=== PATIENT | female | born 1955 | race Caucasian/White ===

== ENCOUNTER 2023-02-08 16:55 | Inpatient (IN) | payer OTHER, MEDICAID ==
[~2023-02-08] VITALS: Ht 149.9 cm; Wt 72.6 kg
[~2023-02-08 16:55] MED LIST: AMAN100C19 PO; BACL20TA PO; COPAXI20 SQ; ESCI20TA PO; ESOM40CA PO; HYDR-3919 PO; LACT10SO66 PO; LEVO75TA7 PO; LISI20TA30 PO; LORA1TAB PO; OXCA150T5 PO; OXYB5TAB16 PO; OXYB5TAB17 PO; ROPI1TAB2 PO; SIMV-345 PO; TRAM50TA92 PO; ZAN4 PO
[2023-02-08 16:58] VITALS: BP_SYST 129; BP_SYST 177
--- NOTE | 2023-02-08 17:00 | NUR ---
PATIENT BIB BLS AMBULANCE FROM [facility]. CC OF BILATERAL LEG SPASMS & BILATERAL HIP PAIN 04/19. PATIENT IS EXTREMELY RESTLESS & DIAPHORETIC. DIFFICULT TO OBNTAIN VITALS & EKG D/T PATIENT MOVEMENT. FACILITY PROVIDED LIST OF MEDICATIONS AND HISTORY, WAS GIVEN TO TRIAGE NURSE BY S CREW. SEE INTAKE TRIAGE NOTES.
[2023-02-08] MEDS ORDERED: NACL 0.9% 1,000 ML IV ONE (17:15)
[2023-02-08] MEDS ORDERED: LORazepam 2 MG/ML VIAL IVP ONE ×2 (17:15→19:45)
[2023-02-08] MEDS ORDERED: KETOROLAC TROMETHAMINE 30 MG VIAL IVP ONE (17:15)
[2023-02-08] MEDS ORDERED: HYDROcodone/ACETAMIN 5-325 MG TAB (NORCO/ VICODIN) PO ONE (17:45)
--- NOTE | 2023-02-08 17:45 | NUR ---
PATIENT NOTED ATTEMPTING TO EXIT THE BED BY THE FOOT OF THE BED. WAS ASSISTED BACK TO PROPER POSITION UISING 2 STAFF MEMBERS. PATIENT IMMEDIATELY ATTEMPTED TO SCOOT BACK TOWARD THE FOOT OF THE BED. WHEN TOLD NOT TO TRY TO GET OUT OF BED, PATIENT STATED THAT SHE WAS NOT TRYING TO GET UP, THAT SHE WAS HAVING MUSCLE SPASMS. PATIENT WAS CLEARLY MAKING MOVES TO EXIT THE BED. MD NOTIFIED.
[2023-02-08 17:49] LABS: BASOPHILS # (AUTO) 0.1 K/uL (0.0-0.2); EOSINOPHILS % (AUTO) 0.1 % (0.0-4.0); MEAN CORPUSCULAR VOLUME 67 fL (79.0-98.0); MONOCYTES # (AUTO) 0.9 K/uL (0.0-1.0)
--- NOTE | 2023-02-08 17:50 | NUR ---
MD AT BEDSIDE REASSESSING PATIENT
[2023-02-08 17:56] LABS: BASOPHILS % (AUTO) 0.8 % (0.0-2.0); LYMPHOCYTES # (AUTO) 1.1 K/uL (1.0-5.5); LYMPHOCYTES % (AUTO) 10.2 % (20.5-51.5); MEAN CORPUSCULAR HEMOGLOBIN 22 pg (27-31); MEAN CORPUSCULAR HGB CONC 32 % (32-36); NEUTROPHILS # (AUTO) 8.7 K/uL (1.8-7.7); NEUTROPHILS % (AUTO) 80.9 % (40.0-70.0); PLATELET COUNT (AUTO) 498 K/uL (130-430); RED BLOOD CELL COUNT(AUTO) 3.25 MIL/uL (4.2-6.2); RED CELL DISTRIBUTION WIDTH 18.2 % (9.0-15.0); WHITE BLOOD COUNT (AUTO) 10.8 K/uL (4.8-10.8)
[2023-02-08] MEDS ORDERED: HALOPERIDOL LACTATE 5 MG/ML VIAL IM ONE (18:00)
[2023-02-08 18:01] LABS: HEMATOCRIT 21.8 % (36-48)
[2023-02-08 18:09] LABS: ALANINE AMINOTRANSFERASE 34 U/L (12-78); ALBUMIN 3.7 g/dL (3.4-4.8); ANION GAP 8 (5-15); ASPARTATE AMINOTRANSFERASE 59 U/L (10-37); CALCIUM 8.5 mg/dL (8.4-11.0); CREATININE 0.62 mg/dL (0.55-1.30); GFR AFRICAN AMERICAN 123 mL/min (>90); GLUCOSE 122 mg/dL (70-99); TOTAL BILIRUBIN 0.4 mg/dL (0.0-1.0); UREA NITROGEN, BLOOD 13 mg/dL (8-21)
[2023-02-08 18:17] LABS: CHLORIDE 84 mmol/L (98-107)
--- NOTE | 2023-02-08 18:29 | NUR ---
CRITICAL LAB OF SODIUM; REPORT GIVEN TO DOMINICK CURTIS
[2023-02-08] MEDS ORDERED: SODIUM CHLORIDE 3% *HI-ALERT* 500 ML IV ONE (18:30)
--- NOTE | 2023-02-08 18:35 | NUR ---
FOLLOWING RECEIPT OF CRITICAL SODIUM LEVEL, PATIENT IS NOW HIGHER AQUITIY LEVEL AND TRANSFER OF CARE & GAVE REPORT TO DOMINICK HOPPER.
--- NOTE | 2023-02-08 19:07 | NUR ---
PER DR GONZALEZ AND TONY HOLLINGSWORTH IN NRSG STATION. PT TO BE GIVEN HYPERTONIC 3% SODIUM 100MLS IN 10 MINUTES VIA IV PUMP.
--- NOTE | 2023-02-08 19:18 | NUR ---
REPORT GIVEN TO DOMINICK NORTON.
--- NOTE | 2023-02-08 19:23 | NUR ---
Admit bed requested Patient will be admitted to care of Dr.SINGH Friedman Admitted to TELEMETRY unit. Diagnosis SEVERE HYPONATREMIA Inpatient (Yes or No) YES Observation (Yes or No) NO Orientation concerns or request close to nursing station (Yes or No) YES Covid Status On vent or bipap NO Isolation requirements NO Needs a sitter NO From Home (Yes or if No enter name of facility) [facility] Requires Dialysis (Yes or No) NO Med Rec Completed (Yes of No) PENDING
[2023-02-08] MEDS ORDERED: LABETALOL 100 MG/ 20ML VIAL IVP ONE (19:30)
--- NOTE | 2023-02-08 19:30 | NUR ---
ER MD MADE AWARE OF 143 HEART RATE, PT SWEATING PREFUSOLEY, STATED HE WILL ASSESS PT AND VERBALLY ORDERED 2ND EKG. 193 I PERFORMED EKG GAVE TO FOR INTERPERTATION, AT BEDSIDE.
--- NOTE | 2023-02-08 20:50 | NUR ---
RECEIVED PATIENT FROM ED VIA GURNEY. PATIENT A/O X 1 AND UNABLE TO ANSWER QUESTIONS. PATIENT IS DIAPHORETIC WITH STABLE VITAL SIGNS. HL INTACT AND PATENT. RECEIVED A CALL FROM DR. TAYLOR REGARDING PATIENT SODIUM LEVEL. ORDERS FOR CHEM 7 NOW AND TO CALL DOCTOR BACK WITH NA LEVEL GIVEN. ORIENTED TO ROOM AND CALL LIGHT SYSTEM. WILL CONTINUE TO MONITOR FOR SAFETY. Jonna PERDOMO RN.
--- NOTE | 2023-02-08 20:51 | NUR ---
CONSULTATION PAGED Reason for Consultation: RENAL Person Who was Notified: MARV Consulting Physician: Mc TAYLOR Consulting phone number: [phone] Pile Fabric Knitter Specialty: NEPHRO Ordering Physician: KIP
--- NOTE | 2023-02-08 21:00 | NUR ---
Patient will be admitted to care of DR SHIN. Admitted to TELE unit. Will go to room 105B. Belongings list completed. Complete and up to date summary report printed. SBAR report to TORRIE TAN be given at bedside with opportunity for questions.
[2023-02-08 21:40] VITALS: BP_SYST 163
--- NOTE | 2023-02-08 21:44 | NUR ---
1 UNIT OF PRBC STARTED ORDERED. Jonna PERDOMO RN.
[2023-02-08] MEDS ORDERED: NACL 0.9% 1,000 ML IV SCH (21:45)
[2023-02-08] MEDS ORDERED: LORazepam 1 MG TABLET PO PRN (21:45)
[2023-02-08] MEDS ORDERED: cloNIDine HCL 0.2 MG TABLET PO PRN (21:45)
[2023-02-08] MEDS ORDERED: NALOXONE HCL 0.4 MG/ML AMP (NARCAN) IVP PRN ×3 (21:45→22:00)
[2023-02-08] MEDS ORDERED: HYDROcodone/ACETAMIN 5-325 MG TAB (NORCO/ VICODIN) PO PRN (21:45)
[2023-02-08] MEDS ORDERED: traMADol HCL HCL 50 MG TABLET (ULTRAM) PO PRN (21:45)
[2023-02-08 21:55] VITALS: BP_SYST 163
--- NOTE | 2023-02-08 21:55 | NUR ---
PATIENT DAUGHTER GINA CALLED AND WAS ABLE TO OBTAIN ADMISSION INFORMATION FROM DAUGHTERPraveen PERDOMO RN.
[2023-02-08] MEDS ORDERED: ONDANSETRON HCL 4 MG/2 ML VIAL IVP PRN (22:00)
[2023-02-08] MEDS ORDERED: ZOLPIDEM TARTRATE 5 MG TABLET PO PRN (22:00)
[2023-02-08] MEDS ORDERED: ACETAMINOPHEN 325 MG TABLET PO PRN (22:00)
[2023-02-08] MEDS ORDERED: MAGNESIUM SULFATE 50 ML IV PRN (22:00)
[2023-02-08] MEDS ORDERED: MUPIROCIN 2% TOPICAL OINTMENT 22 GM NS PRN (22:00)
[2023-02-08] MEDS ORDERED: POTASSIUM CHLORIDE 20 MEQ TAB.PRT.SR PO PRN (22:00)
[2023-02-08] MEDS ORDERED: DOCUSATE SODIUM 100 MG CAPSULE PO PRN (22:00)
--- NOTE | 2023-02-08 22:00 | NUR ---
PATIENT TOLERATING BLOOD TRANSFUSION WELL WITH NO SIGNS OR SYMPTOMS OF A ADVERSE REACTION NOTED. Jonna PERDOMO RN.
[2023-02-08 22:01] VITALS: BP_SYST 176
[2023-02-08 22:27] LABS: CALCIUM 8.3 mg/dL (8.4-11.0); CREATININE 0.72 mg/dL (0.55-1.30)
--- NOTE | 2023-02-08 22:47 | NUR ---
DR TAYLOR PAGED
--- NOTE | 2023-02-08 22:51 | NUR ---
DR. TAYLOR CALLED AND NOTIFIED PATIENT'S NA LEVEL NOW 122. ORDERS GIVEN FOR IVF's. Jonna PERDOMO RN.
[2023-02-09 00:04] VITALS: BP_SYST 164
--- NOTE | 2023-02-09 00:04 | NUR ---
1 UNIT OF PRBC COMPLETE WITH NO ADVERSE REACTIONS NOTED. PATIENT TOLERATED BLOOD TRANSFUSION WELL. Jonna PERDOMO RN.
[2023-02-09 00:08] LABS: BILIRUBIN,URINE NEGATIVE (NEGATIVE); COLOR,URINE YELLOW (YELLOW); GLUCOSE,URINE NEGATIVE (NEGATIVE); KETONES,URINE TRACE (NEGATIVE); LEUKOCYTE ESTERASE ,URINE NEGATIVE (NEGATIVE); NITRITE, URINE NEGATIVE (NEGATIVE); PROTEIN URINE 2+ (NEGATIVE); UROBILINOGEN,URINE 0.2 (0.2-1.0)
[2023-02-09 00:19] LABS: BLOOD, URINE TRACE (NEGATIVE)
[2023-02-09 00:20] LABS: CLARITY/URINE HAZY (CLEAR)
[2023-02-09] MEDS: NACL 0.9% 1,000 ML IV SCH ×2 (00:20→12:36)
[2023-02-09] MEDS: LORazepam 2 MG/ML VIAL IVP PRN (00:20)
[2023-02-09 00:44] LABS: BACTERIA,URINE None Seen /HPF (None Seen); WBC,URINE 0-3 /HPF (0-3)
[2023-02-09 05:26] LABS: BASOPHILS # (AUTO) 0.1 K/uL (0.0-0.2); BASOPHILS % (AUTO) 0.4 % (0.0-2.0); HEMATOCRIT 24.7 % (36-48); HEMOGLOBIN 8.2 g/dL (12.0-16.0); LYMPHOCYTES # (AUTO) 0.8 K/uL (1.0-5.5); MEAN CORPUSCULAR HEMOGLOBIN 23 pg (27-31); MEAN CORPUSCULAR HGB CONC 33 % (32-36); MEAN CORPUSCULAR VOLUME 70 fL (79.0-98.0); MONOCYTES # (AUTO) 1.5 K/uL (0.0-1.0); MONOCYTES % (AUTO) 9.2 % (1.7-9.3); NEUTROPHILS # (AUTO) 14.4 K/uL (1.8-7.7); NEUTROPHILS % (AUTO) 85.4 % (40.0-70.0); PLATELET COUNT (AUTO) 469 K/uL (130-430); RED BLOOD CELL COUNT(AUTO) 3.52 MIL/uL (4.2-6.2); WHITE BLOOD COUNT (AUTO) 16.8 K/uL (4.8-10.8)
[2023-02-09 05:51] LABS: CALCIUM 8.1 mg/dL (8.4-11.0); CREATININE 0.61 mg/dL (0.55-1.30)
[2023-02-09 06:04] LABS: TOTAL IRON BIND. CAPACITY 514 ug/dL (250-450)
--- NOTE | 2023-02-09 06:14 | NUR ---
REMAINS IN STABLE CONDITION. SLEPT WELL THROUGHOUT THE NIGHT. Jonna PERDOMO RN.
--- NOTE | 2023-02-09 07:40 | NUR ---
OPENING NOTES PATIENT IS AOX3. FORGETFUL/ CONFUSED. NO SS OF DISTRESS NOTED. BREATHING IS EVEN AND NONLABORED, ON ROOM AIR. VITAL SIGNS OBTAINED, DOCUMENTED. NO SOB NOTED. PATIENT DENIES PAIN. NO FACIAL GRIMACE NOTED. PATIENT HAS BEEN CLEANED AND REPOSITIONED. AT THIS TIME, PATIENT IS NPO. IV APPEARS TO BE PATENT. NO SS OF INFILTRATION NOTED. IVF RUNNING. PATIENT HAS HASTINGS CATHETER IN PLACE DRAINING YELLOW URINE BY GRAVITY. BED IS LOCKED, ALARM ON, AND AT LOWEST POSITION. CALL LIGHT WITHIN REACH.
[2023-02-09 08:00] VITALS: BP_SYST 136
[2023-02-09] MEDS ORDERED: GLATIRAMER ACETATE 20 MG/ML SQ SCH (09:00)
[2023-02-09] MEDS ORDERED: oxyBUTYnin chloride 5 MG TABLET PO SCH (09:00)
[2023-02-09] MEDS ORDERED: ESCITALOPRAM OXALATE 10 MG TABLET PO SCH (09:00)
[2023-02-09] MEDS: LACTULOSE 20 GM/30 ML UDC PO SCH (09:38)
[2023-02-09] MEDS: BACLOFEN 10 MG TABLET PO SCH ×4 (09:39→21:28)
[2023-02-09] MEDS ORDERED: iohexoL 350 mgI/mL, 100 ML INFUS..BTL IV ONE (09:39)
[2023-02-09] MEDS: tiZANidine HCL 4 MG TABLET PO SCH ×3 (09:39→21:27)
[2023-02-09] MEDS: CITALOPRAM HYDROBROMIDE 20 MG TABLET PO SCH (09:39)
[2023-02-09] MEDS: LEVOTHYROXINE SODIUM 0.075 MG TABLET PO SCH (09:39)
[2023-02-09] MEDS: OXcarbazepine 150 MG TABLET(TRILEPTAL) PO SCH ×2 (09:40→21:27)
[2023-02-09] MEDS: lisinopriL 20 MG TABLET PO SCH (09:40)
--- NOTE | 2023-02-09 09:43 | NUR ---
notes dr. Ba came to see patient at bedside. Per Md, patient can eat and take medications. Morning medications administered. Patient swallowed whole, without difficulty. All safety precautions in place and call light within reach.
--- NOTE | 2023-02-09 10:03 | NUR ---
Spoke to dr. Olivo. to come see patient this afternoon.
--- NOTE | 2023-02-09 10:04 | NUR ---
CONSULTATION PAGED/CALLED Reason for Consultation: [] LEUKOCYTOSIS Person Who was Notified: [] FIFI Consulting Physician: [] DR RICHARD Machine Feeder Raw Stock Specialty: [] ID Ordering Physician: [] DR SHIN
[2023-02-09] MEDS ORDERED: CARVEDILOL 6.25 MG TABLET (COREG) PO ONE (10:30)
[2023-02-09 11:13] LABS: BILIRUBIN,URINE NEGATIVE (NEGATIVE); BLOOD, URINE 2+ (NEGATIVE); CLARITY/URINE CLEAR (CLEAR); COLOR,URINE YELLOW (YELLOW); GLUCOSE,URINE NEGATIVE (NEGATIVE); KETONES,URINE 1+ (NEGATIVE); LEUKOCYTE ESTERASE ,URINE NEGATIVE (NEGATIVE); NITRITE, URINE NEGATIVE (NEGATIVE); PROTEIN URINE 1+ (NEGATIVE); UROBILINOGEN,URINE 0.2 (0.2-1.0)
[2023-02-09 11:26] VITALS: BP_SYST 148
[2023-02-09 11:39] LABS: WBC,URINE 0-3 /HPF (0-3)
[2023-02-09 11:40] LABS: BACTERIA,URINE RARE /HPF (None Seen)
[2023-02-09 11:41] LABS: YEAST,URINE None Seen /HPF (None Seen)
--- NOTE | 2023-02-09 11:56 | NUR ---
Assistant General Manager OPTICAL WORKER received a referral from Dr. Ba to see pt. OPTICAL WORKER first met with Rn. Rojas who stated pt. just arrived, but daughter Kandice stated she will not be available this weekend to pick her mom/pt. up to take her back to [facility] where she resides as she will be out of town. OPTICAL WORKER attempted to meet with pt. but pt. was in a deep sleep. OPTICAL WORKER called and left a message for DPHARRIETT Granddaughter, Meena, and also with Kandice pts. hassan at [phone]. OPTICAL WORKER left a message for both. Addendum: 02/09/23 at 1355 by Marcelina RUTLEDGE Assistant General Manager Daughter, Meena, called stating she is an Rn at the [facility] and is working this weekend. Heri stated her sister, Kandice [phone] is leaving and will be out of town to [facility] this weekend. If pt. is discharged Meena stated she is unsure of the plan. OPTICAL WORKER asked her to work on this matter and stated since pt. just arrived, at this moment, there is no order for discharge planning. Pt. may need to go to a SNF in which case pt would be transported via ambulance. If pt. is medically cleared and needs to return to [facility], they would need to transport pt. unless they call [facility] to see if they have transportation service. Meena stated pt. had stayed the weekend her at her home and pt. was using a walker to get around, which is her normal baseline. Just recently, pt. has had more trouble walking and is experiencing more hip pain. Pt. was going to have her apt. for final clearance for hip surgery, but ended up at the [facility] instead, missed her apt. OPTICAL WORKER asked dtr to work on a transportation plan. OPTICAL WORKER will remain available as needed.
[2023-02-09] MEDS ORDERED: ERAVACYCLINE DI HYDROCHLORIDE IV ONE (12:00)
[2023-02-09] MEDS ORDERED: NS IV ONE (12:00)
--- NOTE | 2023-02-09 12:00 | NUR ---
NOTES PATIENT HAS BEEN REPOSITIONED AND HOB ELEVATED. PATIENT IS EATING LUNCH. NO SS OF DISTRESS NOTED. ALL SAFETY PRECAUTIONS IN PLACE AND CALL LIGHT WITHIN REACH.
[2023-02-09] MEDS: MORPHINE 2 MG/ML INJ. SYRINGE IVP PRN (13:28)
--- NOTE | 2023-02-09 13:30 | NUR ---
NOTES PATIENT STATED BACK PAIN 04/19. REQUEST PAIN MEDICATION. RN MADE AWARE. RN IN ROOM ADMINISTERING IVP PAIN MEDICATION.
[2023-02-09] MEDS: oxyBUTYnin chloride 5 MG TABLET PO SCH ×2 (14:04→21:26)
[2023-02-09 15:02] VITALS: BP_SYST 157
--- NOTE | 2023-02-09 15:45 | NUR ---
PAGED AND SPOKE TO DR. SHIN. MADE AWARE THAT PATIENT CONTINUES TO HAVE MUSCLE SPASMS EVEN AFTER ROUTINE MEDICATION GIVEN. NEW ORDERS RECEIVED,
[2023-02-09] MEDS ORDERED: CYCLOBENZAPRINE HCL 10 MG TABLET (FLEXERIL) PO ONE (16:00)
--- NOTE | 2023-02-09 17:43 | NUR ---
NOTES PATIENT IS RESTING, EYES CLOSED. BREATHING IS EVEN AND NONLABORED, ON ROOM AIR. NO SS OF DISTRESS NOTED. MUSCLE SPASMS APPEAR TO HAVE SUBSIDED. PATIENT DENIES PAIN. ALL SAFTEY PRECAUTION IN PLACE AND CALL LIGHT WITHIN REACH.
--- NOTE | 2023-02-09 18:40 | NUR ---
CLOSING NOTES PATIENT IS RESTING, EYES CLOSED. NO SS OF DISTRESS NOTED. BREATHING IS EVEN AND NONLABORED, ON ROOM AIR. PATIENT'S IV IS PATENT. IVF RUNNING. NO SOB NOTED. NO FACIAL GRIMACE NOTED. PATIENT IS STABLE. ALL NEEDS MET. HASTINGS CATHETER DRAINING YELLOW URINE BY GRAVITY. BED IS LOCKED, ALARM ON, AND AT LOWEST POSITION. CALL LIGHT WITHIN REACH.
--- NOTE | 2023-02-09 19:30 | NUR ---
OPENING NOTES Patient resting in bed - no s/s pain or distress noted. Respirations even and unlabored - head of bed elevated. IV site patent no s/s redness, infection, or infiltration. Bed locked and in lowest position. Call light within reach - bed alarm on.
[2023-02-09 20:00] VITALS: BP_SYST 138
[2023-02-09] MEDS: NS IV SCH (21:25)
[2023-02-09] MEDS: ERAVACYCLINE DI HYDROCHLORIDE IV SCH (21:25)
[2023-02-09] MEDS: SIMVASTATIN 40 MG TABLET PO SCH (21:27)
[2023-02-09] MEDS: CARVEDILOL 6.25 MG TABLET (COREG) PO SCH (21:28)
[2023-02-09] MEDS: CYCLOBENZAPRINE HCL 10 MG TABLET (FLEXERIL) PO SCH (21:36)
[2023-02-10 02:36] VITALS: BP_SYST 129
[2023-02-10 05:03] VITALS: BP_SYST 143
[2023-02-10] MEDS: NACL 0.9% 1,000 ML IV SCH ×2 (06:49→21:12)
[2023-02-10 07:07] LABS: FERRITIN 17 ng/mL (15-150)
[2023-02-10 07:07] LABS: BASOPHILS # (AUTO) 0.1 K/uL (0.0-0.2); BASOPHILS % (AUTO) 0.6 % (0.0-2.0); HEMATOCRIT 22.3 % (36-48); HEMOGLOBIN 7.2 g/dL (12.0-16.0); LYMPHOCYTES % (AUTO) 6.8 % (20.5-51.5); MEAN CORPUSCULAR HEMOGLOBIN 23 pg (27-31); MEAN CORPUSCULAR HGB CONC 32 % (32-36); MEAN CORPUSCULAR VOLUME 71 fL (79.0-98.0); MONOCYTES # (AUTO) 1.5 K/uL (0.0-1.0); MONOCYTES % (AUTO) 9.8 % (1.7-9.3); NEUTROPHILS # (AUTO) 12.7 K/uL (1.8-7.7); PLATELET COUNT (AUTO) 391 K/uL (130-430); RED BLOOD CELL COUNT(AUTO) 3.13 MIL/uL (4.2-6.2); RED CELL DISTRIBUTION WIDTH 19.5 % (9.0-15.0); WHITE BLOOD COUNT (AUTO) 15.3 K/uL (4.8-10.8)
[2023-02-10 07:14] LABS: CALCIUM 7.5 mg/dL (8.4-11.0); CREATININE 0.58 mg/dL (0.55-1.30)
[2023-02-10 07:42] LABS: NEUTROPHILS % (AUTO) 82.8 % (40.0-70.0)
[2023-02-10 08:00] VITALS: BP_SYST 138
--- NOTE | 2023-02-10 08:00 | NUR ---
Initial notes Sleepy, arousable, Denies any pain or discomfort. IVF infusing well. horvath cath draining clear yellow urine. Safety precaution observed. Bed alarm on. Will continue monitor.
[2023-02-10 08:06] LABS: FOLATE (FOLIC ACID) >20.0 ng/mL (>3.0)
[2023-02-10] MEDS: BACLOFEN 10 MG TABLET PO SCH ×4 (08:50→20:21)
[2023-02-10] MEDS: CARVEDILOL 6.25 MG TABLET (COREG) PO SCH ×2 (08:53→20:21)
[2023-02-10] MEDS: LACTULOSE 20 GM/30 ML UDC PO SCH (08:54)
[2023-02-10] MEDS: lisinopriL 20 MG TABLET PO SCH (08:54)
[2023-02-10] MEDS: LEVOTHYROXINE SODIUM 0.075 MG TABLET PO SCH (08:55)
[2023-02-10] MEDS: OXcarbazepine 150 MG TABLET(TRILEPTAL) PO SCH ×2 (08:55→20:20)
[2023-02-10] MEDS: tiZANidine HCL 4 MG TABLET PO SCH ×3 (08:55→20:22)
[2023-02-10] MEDS: CITALOPRAM HYDROBROMIDE 20 MG TABLET PO SCH (08:56)
[2023-02-10] MEDS: oxyBUTYnin chloride 5 MG TABLET PO SCH ×3 (08:56→20:22)
[2023-02-10] MEDS: CYCLOBENZAPRINE HCL 10 MG TABLET (FLEXERIL) PO SCH ×3 (08:56→20:21)
[2023-02-10] MEDS: NS IV SCH ×2 (08:57→20:30)
[2023-02-10] MEDS: ERAVACYCLINE DI HYDROCHLORIDE IV SCH ×2 (08:57→20:30)
[2023-02-10] MEDS ORDERED: POTASSIUM CHLORIDE 40 MEQ in NS 250 ML IV ONE (11:00)
[2023-02-10 11:30] VITALS: BP_SYST 127
--- NOTE | 2023-02-10 12:05 | NUR ---
>>>PT NOTES<<< PATIENT REFUSED PHYSICAL THERAPY TODAY DUE TO C/O TIREDNESS. WILL FOLLOW UP ON 02/12/23.
[2023-02-10 12:07] LABS: BASOPHILS # (AUTO) 0.1 K/uL (0.0-0.2); BASOPHILS % (AUTO) 0.4 % (0.0-2.0); EOSINOPHILS % (AUTO) 0.2 % (0.0-4.0); LYMPHOCYTES # (AUTO) 1.4 K/uL (1.0-5.5); LYMPHOCYTES % (AUTO) 8.5 % (20.5-51.5); MEAN CORPUSCULAR HEMOGLOBIN 23 pg (27-31); MEAN CORPUSCULAR HGB CONC 32 % (32-36); MEAN CORPUSCULAR VOLUME 71 fL (79.0-98.0); MONOCYTES # (AUTO) 1.7 K/uL (0.0-1.0); MONOCYTES % (AUTO) 10.6 % (1.7-9.3); NEUTROPHILS # (AUTO) 13.2 K/uL (1.8-7.7); NEUTROPHILS % (AUTO) 80.3 % (40.0-70.0); PLATELET COUNT (AUTO) 376 K/uL (130-430); RED BLOOD CELL COUNT(AUTO) 2.94 MIL/uL (4.2-6.2); RED CELL DISTRIBUTION WIDTH 19.9 % (9.0-15.0); WHITE BLOOD COUNT (AUTO) 16.4 K/uL (4.8-10.8)
[2023-02-10 12:12] LABS: HEMATOCRIT 20.9 % (36-48); HEMOGLOBIN 6.7 g/dL (12.0-16.0)
--- NOTE | 2023-02-10 13:50 | NUR ---
CONSULTATION PAGED REASON FOR CONSULTATION: POSSIBLE GI BLEED WAS CONSULT CALLED? Y PERSON WHO WAS NOTIFIED: GARRET CONSULTING PHYSICIAN: NANCI OWEN (GAMALIEL LEONARD WELDER TOOL AND DIE) REACH TRUCK OPERATOR SPECIALTY: GI REACH TRUCK OPERATOR PHONE [phone]: REQUESTING PHYSICIAN: BALTAZAR PERKINS
[2023-02-10] MEDS ORDERED: PANTOPRAZOLE SODIUM 40 MG/VIAL (PROTONIX) IVP ONE (14:00)
--- NOTE | 2023-02-10 14:00 | NUR ---
NOTES- K rider still running. We give blood transfusion after k rider is done.
[2023-02-10 15:24] VITALS: BP_SYST 106
--- NOTE | 2023-02-10 16:34 | NUR ---
Notes- Blood transfusion started. educate patient on blood transfusion reaction.
--- NOTE | 2023-02-10 17:30 | NUR ---
Notes- patient's trying to get out of bed. Instructed patient not to get out of bed.
--- NOTE | 2023-02-10 18:40 | NUR ---
closing notes Resting in bed, blood transfusion still ongoing. Will endorse.
--- NOTE | 2023-02-10 19:30 | NUR ---
OPENING NOTE Pt laying in bed with eyes closed. Breathing even and unlabored with no s/s of respiratory distress. Blood transfusion infusing. Pt drowsy but arousable. Fall and safety precautions in place. Bed at lowest position, bed alarm on, and call light within reach.
--- NOTE | 2023-02-10 19:43 | NUR ---
BLOOD TRANSFUSION Blood transfusion complete. Pt tolerated well.
[2023-02-10 20:00] VITALS: BP_SYST 161
[2023-02-10] MEDS: SIMVASTATIN 40 MG TABLET PO SCH (20:20)
[2023-02-11] VITALS (22 sets, daily range): BP systolic 86–207
--- NOTE | 2023-02-11 03:13 | NUR ---
RAPID RESPONSE Pt was yelling "help, help, I can't breathe". RN went into room and found pt lying in bed with increased WOB and using accessory muscles. Elevated head of bed, O2 was 78% on RA. Placed on 5L nasal cannula, saturation went up to 94%. Rapid response was called. BP elevated 207/117. STAT chest xray and ABG were taken. Paged Dr Brenner.
--- NOTE | 2023-02-11 03:28 | NUR ---
SPOKE W/ DR LAKE Notified Dr Lake of change of condition. New orders received. Pt to be transferred to ICU.
--- NOTE | 2023-02-11 03:39 | NUR ---
Paged Dr. Riley s/w Barber
[2023-02-11] MEDS ORDERED: IPRATROPIUM/ALBUTEROL SULFATE 3 ML AMPUL.NEB (DUONEB) INH PRN (04:00)
--- NOTE | 2023-02-11 04:02 | NUR ---
Second call for Dr. Riley s/w Tom
[2023-02-11] MEDS ORDERED: hydrALAZINE HCL 20 MG/ML VIAL ONE (04:09)
--- NOTE | 2023-02-11 04:27 | NUR ---
TRANSFER TO ICU Report given to CAR USHER
--- NOTE | 2023-02-11 04:30 | NUR ---
Notes Patient was transferred to ICU from telemetry unit. Received report from Rehana TAN. Patient's vital signs blood pressure 164/96, heart rate 87, respirations 22, and SPO2 98% on 6L NC. Patient was cleaned and put a optifoam on her coccyx for pressure ulcer prevention. Jim catheter is in place, draining to gravity, yellow in color. Bed is locked and in lowest position, call light button within reach, fall and safety precautions is in place. [address] Brenner regarding lab results. No new order given.
[2023-02-11 04:33] LABS: BASOPHILS # (AUTO) 0.1 K/uL (0.0-0.2); BASOPHILS % (AUTO) 0.4 % (0.0-2.0); EOSINOPHILS # (AUTO) 0.1 K/uL (0.0-0.4); EOSINOPHILS % (AUTO) 0.4 % (0.0-4.0); HEMATOCRIT 28.2 % (36-48); HEMOGLOBIN 9.1 g/dL (12.0-16.0); LYMPHOCYTES # (AUTO) 1.2 K/uL (1.0-5.5); LYMPHOCYTES % (AUTO) 6.5 % (20.5-51.5); MEAN CORPUSCULAR HEMOGLOBIN 24 pg (27-31); MEAN CORPUSCULAR HGB CONC 32 % (32-36); MEAN CORPUSCULAR VOLUME 74 fL (79.0-98.0); MONOCYTES # (AUTO) 1.3 K/uL (0.0-1.0); NEUTROPHILS # (AUTO) 15.9 K/uL (1.8-7.7); NEUTROPHILS % (AUTO) 85.7 % (40.0-70.0); PLATELET COUNT (AUTO) 418 K/uL (130-430); RED CELL DISTRIBUTION WIDTH 21.7 % (9.0-15.0); WHITE BLOOD COUNT (AUTO) 18.6 K/uL (4.8-10.8)
[2023-02-11 04:44] LABS: CALCIUM 7.5 mg/dL (8.4-11.0); CREATININE 0.64 mg/dL (0.55-1.30)
[2023-02-11] MEDS ORDERED: hydrALAZINE HCL 20 MG/ML VIAL IVP ONE (05:00)
[2023-02-11] MEDS ORDERED: FUROSEMIDE 40 MG/4 ML VIAL IVP ONE (05:00)
[2023-02-11] MEDS: MORPHINE 2 MG/ML INJ. SYRINGE IVP PRN ×2 (05:15→09:17)
--- NOTE | 2023-02-11 05:34 | NUR ---
FAMILY INFORMED Daughter, Meena informed that pt has been transferred to ICU. All questions were answered.
--- NOTE | 2023-02-11 07:45 | NUR ---
Received report from RN. Patient in bed awake and cooperative, no IVF running, NC at 6L, O2 saturation 100%.
[2023-02-11] MEDS: OXcarbazepine 150 MG TABLET(TRILEPTAL) PO SCH ×2 (09:08→20:12)
[2023-02-11] MEDS: LACTULOSE 20 GM/30 ML UDC PO SCH (09:08)
[2023-02-11] MEDS: PANTOPRAZOLE SODIUM 40 MG/VIAL (PROTONIX) IVP SCH (09:08)
[2023-02-11] MEDS: oxyBUTYnin chloride 5 MG TABLET PO SCH ×3 (09:09→20:12)
[2023-02-11] MEDS: CYCLOBENZAPRINE HCL 10 MG TABLET (FLEXERIL) PO SCH ×3 (09:09→20:12)
[2023-02-11] MEDS: CITALOPRAM HYDROBROMIDE 20 MG TABLET PO SCH (09:09)
[2023-02-11] MEDS: CARVEDILOL 6.25 MG TABLET (COREG) PO SCH ×2 (09:10→20:11)
[2023-02-11] MEDS: LEVOTHYROXINE SODIUM 0.075 MG TABLET PO SCH (09:10)
[2023-02-11] MEDS: BACLOFEN 10 MG TABLET PO SCH ×4 (09:10→20:11)
[2023-02-11] MEDS: tiZANidine HCL 4 MG TABLET PO SCH ×3 (09:11→20:11)
[2023-02-11] MEDS: lisinopriL 20 MG TABLET PO SCH (09:11)
[2023-02-11] MEDS: NS IV SCH ×2 (09:12→20:11)
[2023-02-11] MEDS: ERAVACYCLINE DI HYDROCHLORIDE IV SCH ×2 (09:12→20:11)
[2023-02-11] MEDS: IPRATROPIUM/ALBUTEROL SULFATE 3 ML AMPUL.NEB (DUONEB) INH SCH ×2 (13:42→19:16)
[2023-02-11] MEDS: metroNIDAZOLE 500 mg/NS 100 ML IV SCH ×2 (13:59→22:04)
[2023-02-11] MEDS: SIMVASTATIN 40 MG TABLET PO SCH (20:12)
[2023-02-12] VITALS (20 sets, daily range): BP systolic 112–203
[2023-02-12] MEDS: IPRATROPIUM/ALBUTEROL SULFATE 3 ML AMPUL.NEB (DUONEB) INH SCH ×4 (00:55→19:35)
[2023-02-12 05:20] LABS: BASOPHILS # (AUTO) 0.1 K/uL (0.0-0.2); BASOPHILS % (AUTO) 0.8 % (0.0-2.0); EOSINOPHILS # (AUTO) 0.2 K/uL (0.0-0.4); EOSINOPHILS % (AUTO) 1.2 % (0.0-4.0); HEMATOCRIT 29.3 % (36-48); HEMOGLOBIN 9.5 g/dL (12.0-16.0); LYMPHOCYTES # (AUTO) 1.7 K/uL (1.0-5.5); LYMPHOCYTES % (AUTO) 11.8 % (20.5-51.5); MEAN CORPUSCULAR HEMOGLOBIN 24 pg (27-31); MEAN CORPUSCULAR HGB CONC 32 % (32-36); MEAN CORPUSCULAR VOLUME 75 fL (79.0-98.0); MONOCYTES # (AUTO) 1.3 K/uL (0.0-1.0); MONOCYTES % (AUTO) 8.8 % (1.7-9.3); NEUTROPHILS # (AUTO) 11.2 K/uL (1.8-7.7); NEUTROPHILS % (AUTO) 77.4 % (40.0-70.0); PLATELET COUNT (AUTO) 446 K/uL (130-430); RED BLOOD CELL COUNT(AUTO) 3.93 MIL/uL (4.2-6.2); RED CELL DISTRIBUTION WIDTH 21.9 % (9.0-15.0); WHITE BLOOD COUNT (AUTO) 14.5 K/uL (4.8-10.8)
[2023-02-12] MEDS: metroNIDAZOLE 500 mg/NS 100 ML IV SCH ×3 (05:31→22:48)
[2023-02-12 05:42] LABS: CALCIUM 8.1 mg/dL (8.4-11.0); CREATININE 0.81 mg/dL (0.55-1.30)
[2023-02-12 06:36] LABS: PROTHROMBIN TIME 10.8 SECS (9.5-12.5)
--- NOTE | 2023-02-12 07:10 | NUR ---
Opening Received report from RN. Pt lethargic/drowsy, arousable, but does not stay awake. In no signs of pain. Equal chest rise and fall, on 2L O2 nasal cannula. Pt for EGD today, consent signed and in chart. Peripheral IV site saline locked, no infiltration noted. Jim in place draining urine to gravity. MRSA swab collected and sent to lab.
[2023-02-12] MEDS ORDERED: MIDAZOLAM HCL 5 MG/5 ML VIAL ONE (08:44)
[2023-02-12] MEDS: PANTOPRAZOLE SODIUM 40 MG/VIAL (PROTONIX) IVP SCH (08:44)
[2023-02-12] MEDS ORDERED: SIMETHICONE 40 MG/0.6 ML ML ONE (08:44)
[2023-02-12] MEDS ORDERED: fentaNYL CITRATE/PF 100 MCG/2 ML AMP ONE (08:45)
[2023-02-12] MEDS: ERAVACYCLINE DI HYDROCHLORIDE IV SCH ×2 (08:45→20:47)
[2023-02-12] MEDS: NS IV SCH ×2 (08:45→20:47)
[2023-02-12] MEDS: BACLOFEN 10 MG TABLET PO SCH ×4 (08:49→21:00)
[2023-02-12] MEDS: oxyBUTYnin chloride 5 MG TABLET PO SCH ×3 (08:50→20:52)
[2023-02-12] MEDS: lisinopriL 20 MG TABLET PO SCH (08:50)
[2023-02-12] MEDS: CITALOPRAM HYDROBROMIDE 20 MG TABLET PO SCH (08:50)
[2023-02-12] MEDS: LACTULOSE 20 GM/30 ML UDC PO SCH (08:50)
[2023-02-12] MEDS: CARVEDILOL 6.25 MG TABLET (COREG) PO SCH ×2 (08:50→20:51)
--- NOTE | 2023-02-12 08:50 | NUR ---
EGD being done at bedside
[2023-02-12] MEDS: OXcarbazepine 150 MG TABLET(TRILEPTAL) PO SCH ×2 (08:51→20:59)
[2023-02-12] MEDS: LEVOTHYROXINE SODIUM 0.075 MG TABLET PO SCH (08:51)
--- NOTE | 2023-02-12 09:03 | NUR ---
Dr. Barry states findings as hiatal hernia, gastric ulcers, and food in the esophagus. New orders made for swallow eval. Dr. Barry states, if clear from swallow eval, start pt on clear liquid diet.
--- NOTE | 2023-02-12 09:33 | NUR ---
Linen change and clinton care done. Pt noted with more responsiveness and talking but is still drowsy. No signs of distress noted.
[2023-02-12] MEDS: KETOROLAC TROMETHAMINE 15 MG VIAL IVP PRN ×2 (12:19→18:27)
--- NOTE | 2023-02-12 12:20 | NUR ---
Pt c/o pain to right hip, received orders for prn toradol, administered to pt. Also repositioned pt. Pt's daughter Meena at bedside. Informed and aware regarding avoidance of narcotics for pain d/t pt being drowsy and also aspiration risk.
--- NOTE | 2023-02-12 12:41 | NUR ---
PICC line nurse at bedside for procedure
--- NOTE | 2023-02-12 12:45 | NUR ---
Social Service Assessment: Met with daughter at bedside to complete a social service assessment. I introduced myself to her and advised her why I was coming to speak with her. The daughter was in agreement to speaking with me. Prior to her admission, the pateint was residing at [facility]. There she receives partial assistance. The [facility] assists with bathing 2x a week and medication management. The patient has both a walker and a cane that she uses. She does not have a Power of Tool Shaper Setup Operator. Her support comes from her family and the [facility]. Her PCP is Dr. Adrian in [place]. The discharge plan is to go pto a SNF for skilled rehab, then to eventually return back to [facility]. I inquired about SNF placement and the daughter's willingness to go to a SNF for skilled rehab. The daughter is in agreement to SNF placement. She states she was told about [facility] and requested information related to [facility]. I provided the daughter with pamphlets on local SNFs, including [facility]. The daughter indicated she would review the pamphlets provided.
--- NOTE | 2023-02-12 13:00 | NUR ---
Pt awake and screaming in pain, pt's daughter at bedside. Offered to reposition pt, but pt refused. Pt arousable with equal chest rise and fall, but does not answer questions fully.
--- NOTE | 2023-02-12 15:30 | NUR ---
Pt awake and occasionally screaming in pain. Pt also more awake to participate in swallow eval.
[2023-02-12] MEDS: hydrALAZINE HCL 20 MG/ML VIAL IVP PRN (15:41)
--- NOTE | 2023-02-12 15:50 | NUR ---
Bedside swallow eval done by speech therapist
--- NOTE | 2023-02-12 15:58 | NUR ---
ST EVALUATION COMPLETED. ST TX NOT INDICATED AT THIS TIME. RECOMMEND PO DIET OF PUREE/THIN LIQUID. PT MAY BENEFIT FROM CLEAR LIQUIDS ONLY DUE TO GI DIAGNOSIS. 1:1 FEEDER AND FULL ASPIRATION PRECAUTIONS.
[2023-02-12] MEDS: MORPHINE 2 MG/ML INJ. SYRINGE IVP PRN (16:42)
--- NOTE | 2023-02-12 16:42 | NUR ---
Pt noted awake and screaming more frequently in pain, on 2L nasal cannula. Provided pt with PO meds and PRN pain medication. Able to swallow meds without coughing, remains in high fowlers position.
--- NOTE | 2023-02-12 18:15 | NUR ---
Pt awake and screaming, states "I need help with my pain." No respiratory distress noted on 2L nasal cannula. Also attempted to check pt's orientation, but pt repeats inappropriate answers. Administered PRN pain medication per MD order. Pt provided with dinner tray.
[2023-02-12] MEDS: LORazepam 2 MG/ML VIAL IVP PRN (18:26)
[2023-02-12] MEDS ORDERED: IBUP-1970 PO (18:29)
[2023-02-12] MEDS ORDERED: ROSU20TA2 PO (18:29)
[2023-02-12] MEDS ORDERED: VIS25 PO (18:29)
[2023-02-12] MEDS ORDERED: LEVO88TA5 PO (18:29)
[2023-02-12] MEDS ORDERED: TRAZ-251 PO (18:29)
[2023-02-12] MEDS ORDERED: ACET-2634 PO (18:29)
[2023-02-12] MEDS ORDERED: ZAN4 PO (18:29)
[2023-02-12] MEDS ORDERED: LORA-258 PO (18:29)
[2023-02-12] MEDS ORDERED: ALEN10TA25 PO (18:29)
[2023-02-12] MEDS ORDERED: OMEP20CA15 PO (18:29)
[2023-02-12] MEDS ORDERED: HYDR-3927 PO (18:29)
--- NOTE | 2023-02-12 18:29 | NUR ---
Medication reconciliation completed as provided by pt's facility.
--- NOTE | 2023-02-12 18:48 | NUR ---
Paged Dr. Ba and informed regarding patient's behavior and current status. New orders made
--- NOTE | 2023-02-12 19:00 | NUR ---
CONSULTATION PAGED/CALLED Reason for Consultation: schizoaffective disorder Person Who was Notified: exchange Consulting Physician: Dr. Catherine/Dr. Bates Telegraph Repeater Installer Specialty: psychiatry Ordering Physician: Dr. Ba
--- NOTE | 2023-02-12 19:15 | NUR ---
Closing Pt asleep, arousable, equal chest rise and fall, in no signs of pain or distress on 2L nasal cannula. Attempted to feed pt dinner, states, "I don't want to eat any more." Pt was able to tolerate a few sips of chicken broth. HOB remains elevated to maintain aspiration precautions. Endorsed plan of care to RN.
--- NOTE | 2023-02-12 19:35 | NUR ---
Received call from Telepsych Doctor in response to Psych consultation requested by Dr Ba this afternoon. History and medications as well as reason for consultation information was exchanged. Telepsych MD reported this consultation should be completed tomorrow Sunday02/13/23 around 0800 am with Psych MD web operations specialist at that time. Mrs Capellan has been off her psych medications as she stop taking them according to her family. Patient has been lethargic and in occasions frustrated with "not getting enough pain medication and I'm always in pain" as she refers to pain to right hip. Lethargic and while sleeping heart rate drops down to low 40's. HR improves while awake. Awaiting psych consultation in am via telepsych.
[2023-02-12] MEDS: SIMVASTATIN 40 MG TABLET PO SCH (20:59)
--- NOTE | 2023-02-12 21:00 | NUR ---
Pills swallowing. Continues to be very drowsy and arouses after repeated commands to open eyes. Needs frequent direction to follow command to swallow pills with water/no straw. Able to swallow pills one at the time and requires nurse to place pill in her mouth as she is not able to do it herself. No signs of choking or coughing while drinking water.
--- NOTE | 2023-02-12 22:02 | NUR ---
FAMILY UPDATE UPDATED PTS DAUGHTER ROHITH THAT PT WILL BE TRANSFERRED TO TELEMETRY FLOOR RM 112A. ALL QUESTIONS ANSWERED. PER ROHITH PLS USE HER FIRST CONTACT. [phone]
--- NOTE | 2023-02-12 22:50 | NUR ---
Transfer from ICU Received SBAR report from DOMINICK Oneil. Patient resting in bed w/ eyes closed, no distress and nonlabored breathing on 2L NC. Patient resting w/eyes closed, yet arousable and closes her eyes again. Does not talk, yells and nods head. horvath catheter draining to gravity. PICC to FADUMO and IV to LFA are patent. Safety precautions in place
[2023-02-13] MEDS: hydrALAZINE HCL 20 MG/ML VIAL IVP PRN ×2 (00:32→00:37)
--- NOTE | 2023-02-13 00:38 | NUR ---
Elevated BP, Hydralazine BP 189/89, HR 102. Administered Hydralazine IVP as ordered. Patient is resting w/eyes closed, momentarily opened eyes. Reviewed side effects, she did not verbalize understanding. Bed locked in lowest position and bed alarm on.
[2023-02-13] MEDS: IPRATROPIUM/ALBUTEROL SULFATE 3 ML AMPUL.NEB (DUONEB) INH SCH ×3 (00:57→13:05)
[2023-02-13] MEDS: KETOROLAC TROMETHAMINE 15 MG VIAL IVP PRN (03:24)
--- NOTE | 2023-02-13 04:06 | NUR ---
Rounds / Pain assessment Patient resting in bed, visible chest rise and fall. No signs of pain noted.
[2023-02-13 05:28] LABS: BASOPHILS # (AUTO) 0.1 K/uL (0.0-0.2); BASOPHILS % (AUTO) 0.6 % (0.0-2.0); EOSINOPHILS # (AUTO) 0.1 K/uL (0.0-0.4); EOSINOPHILS % (AUTO) 0.8 % (0.0-4.0); HEMATOCRIT 31.4 % (36-48); LYMPHOCYTES # (AUTO) 1.2 K/uL (1.0-5.5); LYMPHOCYTES % (AUTO) 9.7 % (20.5-51.5); MEAN CORPUSCULAR HEMOGLOBIN 24 pg (27-31); MEAN CORPUSCULAR HGB CONC 32 % (32-36); MEAN CORPUSCULAR VOLUME 75 fL (79.0-98.0); MONOCYTES # (AUTO) 1.1 K/uL (0.0-1.0); MONOCYTES % (AUTO) 9.6 % (1.7-9.3); NEUTROPHILS # (AUTO) 9.4 K/uL (1.8-7.7); NEUTROPHILS % (AUTO) 79.3 % (40.0-70.0); PLATELET COUNT (AUTO) 470 K/uL (130-430); RED BLOOD CELL COUNT(AUTO) 4.21 MIL/uL (4.2-6.2); RED CELL DISTRIBUTION WIDTH 22.7 % (9.0-15.0); WHITE BLOOD COUNT (AUTO) 11.9 K/uL (4.8-10.8)
[2023-02-13 05:43] LABS: CREATININE 0.63 mg/dL (0.55-1.30)
[2023-02-13] MEDS: metroNIDAZOLE 500 mg/NS 100 ML IV SCH (06:27)
--- NOTE | 2023-02-13 06:30 | NUR ---
Flagyl / closing note Scheduled med administered. Infusing well via SANIA PICC, no s/sx of infiltration. Presently she is quiet and calm. No distress, safety precautions in place. Will endorse to day shift
[2023-02-13] MEDS: MORPHINE 2 MG/ML INJ. SYRINGE IVP PRN (07:00)
[2023-02-13] MEDS ORDERED: POTASSIUM CHLORIDE 20 MEQ TAB.PRT.SR PO ONE (07:45)
[2023-02-13 08:05] VITALS: BP_SYST 156
--- NOTE | 2023-02-13 08:05 | NUR ---
INITIAL ROUNDS Received pt AAOx2, no s/s resp distress, no c/o pain or discomfort. Pt repositioned with pillow support and heels off-loaded for skin care and comfort. Plan of care for the day reviewed with pt-pt only nodded her head yes. Side rails up x3, bed alarm on and room close to nursing station for safety. Call light within reach.
[2023-02-13] MEDS: LACTULOSE 20 GM/30 ML UDC PO SCH ×2 (09:00→09:12)
[2023-02-13] MEDS: ERAVACYCLINE DI HYDROCHLORIDE IV SCH (09:11)
[2023-02-13] MEDS: NS IV SCH (09:11)
[2023-02-13] MEDS: oxyBUTYnin chloride 5 MG TABLET PO SCH (09:12)
[2023-02-13] MEDS: OXcarbazepine 150 MG TABLET(TRILEPTAL) PO SCH (09:13)
--- NOTE | 2023-02-13 09:14 | NUR ---
PSYCH CONSULT CALLED [phone] AND PROVIDED EXCHANGE PATIENT'S MR NUMBER
[2023-02-13] MEDS: CITALOPRAM HYDROBROMIDE 20 MG TABLET PO SCH (09:17)
[2023-02-13] MEDS: lisinopriL 20 MG TABLET PO SCH (09:17)
[2023-02-13] MEDS: CARVEDILOL 6.25 MG TABLET (COREG) PO SCH (09:17)
[2023-02-13] MEDS: LEVOTHYROXINE SODIUM 0.075 MG TABLET PO SCH (09:17)
[2023-02-13] MEDS: BACLOFEN 10 MG TABLET PO SCH ×2 (09:17→14:50)
[2023-02-13] MEDS ORDERED: PANTOPRAZOLE SODIUM 40 MG TAB PO ONE (09:30)
[2023-02-13 11:36] VITALS: BP_SYST 151
--- NOTE | 2023-02-13 13:29 | NUR ---
Spoke w/ patient's daughter ,Meena, at the patient's request. She would like the patient to go to [facility]-Referral sent to [facility].
[2023-02-13 13:43] VITALS: BP_SYST 151
[2023-02-13] MEDS ORDERED: metroNIDAZOLE 500 MG TABLET PO SCH (14:00)
[2023-02-13 15:30] VITALS: BP_SYST 144
--- NOTE | 2023-02-13 16:25 | NUR ---
PT TRANSFERRED Report given to Keerthi IRBY at [facility] Transfer packet with Transfer Orders and Medication Reconciliation form given to EMT with report. Exitcare provided. [facility] ID band removed, replaced with ID band with pt's name and . PICC Line and IV catheter removed, intact and dressing applied, no active bleeding. Jim catheter remains in place. All belongings sent with patient. Patient left floor via gurney escorted by EMT in no distress.
[2023-02-13] MEDS ORDERED: PANTOPRAZOLE SODIUM 40 MG TAB PO SCH (21:00)
--- NOTE | 2023-02-14 11:52 | NUR ---
Received a call from [facility] requesting that a medlist be sent to them, as the patient arrived yesterday without one. A medlist was printed and sent to [facility] at [phone].
== END 2023-02-13 16:25 | DRG 377 ==
LOC: SED 16:55 → STU 18:58 → SIC 02-11 04:31 → STU 02-12 22:17
PROVIDERS: ADMIT General Practice; ATTEND General Practice
PROC: 30233N1 Transfusion of Nonautologous Red Blood Cells into Peripheral Vein, Percutaneous Approach (ICD-10-PCS; 2023-02-08)
PROC: 02HV33Z Insertion of Infusion Device into Superior Vena Cava, Percutaneous Approach (ICD-10-PCS; 2023-02-12)
PROC: B548ZZA Ultrasonography of Superior Vena Cava, Guidance (ICD-10-PCS; 2023-02-12)
PROC: 0DB78ZX Excision of Stomach, Pylorus, Via Natural or Artificial Opening Endoscopic, Diagnostic (ICD-10-PCS; principal; 2023-02-12 08:30)
DX: K29.71 Gastritis, unspecified, with bleeding (principal); J96.01 Acute respiratory failure with hypoxia; R65.11 Systemic inflammatory response syndrome (SIRS) of non-infectious origin with acute organ dysfunction; T83.511A Infection and inflammatory reaction due to indwelling urethral catheter, initial encounter; E87.1 Hypo-osmolality and hyponatremia; N39.0 Urinary tract infection, site not specified; K25.4 Chronic or unspecified gastric ulcer with hemorrhage; G90.8 Other disorders of autonomic nervous system; G35 Multiple sclerosis; D64.9 Anemia, unspecified; E03.9 Hypothyroidism, unspecified; I10 Essential (primary) hypertension; M62.838 Other muscle spasm; F32.A Depression, unspecified; K44.9 Diaphragmatic hernia without obstruction or gangrene; G89.4 Chronic pain syndrome; E11.43 Type 2 diabetes mellitus with diabetic autonomic (poly)neuropathy; K31.84 Gastroparesis; K22.89 Other specified disease of esophagus; Z88.1 Allergy status to other antibiotic agents; Z91.040 Latex allergy status; Z88.2 Allergy status to sulfonamides; Z88.8 Allergy status to other drugs, medicaments and biological substances; Z91.018 Allergy to other foods; Z91.09 Other allergy status, other than to drugs and biological substances; Z88.9 Allergy status to unspecified drugs, medicaments and biological substances; Z87.440 Personal history of urinary (tract) infections; Z85.89 Personal history of malignant neoplasm of other organs and systems
CPT/HCPCS: 36415; 36600; 43239; 71045; 71275; 72191; 74175; 76376; 80048; 80053; 81000; 82272; 82533; 82607; 82728; 82746; 82803; 83037; 83540; 83550; 83735; 84443; 84484; 85025; 85610-TC; 86886; 86900; 86901; 86920; 87040; 87081; 87086; 88305; 88312; 88313; 92610-GN; 93005; 94640; 94760; 96361; 96372; 96374; 97530-GP; 99291; 99292; C9113; G0378; J0122; J0360; J1630; J1885; J1940; J2060; J2250; J2270; J3010; J3480; J3490; J7050; P9021; Q9967